=== PATIENT | male | born 1945 | race Two or more races ===

== ENCOUNTER → 2017-04-21 | Outpatient (CLI) | payer MEDICARE, OTHER ==
[2017-04-21 10:45] LABS: BASOPHILS % 0.5 % (0.0-2.0); EOSINOPHILS # 0.3 10^3/ul (0.0-0.5); EOSINOPHILS % 3.8 % (0.0-7.0); HEMATOCRIT 35.5 % (42.0-52.0); HEMOGLOBIN 10.9 g/dl (14.0-18.0); LYMPHOCYTES # 1.3 10^3/ul (0.8-2.9); LYMPHOCYTES % 19.7 % (15.0-51.0); MEAN CORPUSCULAR HEMOGLOBIN 20.1 pg (29.0-33.0); MEAN CORPUSCULAR HGB CONC 30.7 g/dl (32.0-37.0); MEAN CORPUSCULAR VOLUME 65.6 fl (82.0-101.0); MEAN PLATELET VOLUME 9.7 fl (7.4-10.4); MONOCYTE # 0.5 10^3/ul (0.3-0.9); MONOCYTES % 7.1 % (0.0-11.0); NEUTROPHILS % 68.6 % (39.0-77.0); PLATELET COUNT 208 10^3/UL (140-415); RED BLOOD COUNT 5.41 10^6/ul (4.70-6.10); RED CELL DISTRIBUTION WIDTH 16.9 % (11.5-14.5); WHITE BLOOD COUNT 6.7 10^3/ul (4.8-10.8)
[2017-04-21 11:18] LABS: ALBUMIN 4.3 g/dl (3.3-4.9); ALBUMIN/GLOBULIN RATIO 1.19; BILIRUBIN,INDIRECT 0.4 mg/dl (0-1.1); BILIRUBIN,TOTAL 0.4 mg/dl (0.2-1.3); CALCIUM 9.7 mg/dl (8.4-10.2); CREATININE 0.88 mg/dl (0.61-1.24); POTASSIUM 4.8 mmol/L (3.5-5.1); TOTAL PROTEIN 7.9 g/dl (6.1-8.1)
== END | disposition home or self-care (01) ==
LOC: LAB 10:03
PROVIDERS: ATTEND Internal Medicine Gastroenterology
DX: R63.4 Abnormal weight loss (principal)
CPT/HCPCS: 80053; 85025

== ENCOUNTER 2017-06-10 15:41 | Day surgery (SDC) | payer MEDICARE, OTHER ==
[~2017-06-10] VITALS: Ht 167.6 cm; Wt 64.0 kg
[2017-06-10 16:04] VITALS: Ht 167.6 cm; Wt 64.0 kg
[2017-06-10] MEDS ORDERED: MIDAZOLAM 1 MG/ML 2 ML INJ ONE (16:19)
[2017-06-10] MEDS ORDERED: FENTAnyl 50 MCG/ML VIAL ONE (16:19)
[2017-06-10] MEDS ORDERED: PROPOFOL 20 ML ONE (16:19)
[2017-06-10 16:38] VITALS: BP 159/73; PULSE 65; RESP 18
--- NOTE | 2017-06-10 17:50 | OPPN ---
Date/Time of Note Date/Time of Note DATE: 06/10/17 TIME: 17:48 Operative Report Preoperative Diagnosis Change in bowel habit Weight loss Postoperative Diagnosis Gastritis with erosions Multiple sigmoid polyps Internal hemorrhoids Operation/Procedure Performed Esophagogastroduodenoscopy and biopsy Colonoscopy biopsy and polypectomy Surgeon see signature line clinical assistant None Anesthesia: MAC Estimated blood loss: none Transfusion Required none Specimen Gastric mucosal biopsy Colon polyps Grafts/Implants none Complications none ISAC NG MD Jun 10, 2017 17:50
--- NOTE | 2017-06-10 17:50 | OPPN ---
Date/Time of Note Date/Time of Note DATE: 06/10/17 TIME: 17:48 Operative Report Preoperative Diagnosis Change in bowel habit Weight loss Postoperative Diagnosis Gastritis with erosions Multiple sigmoid polyps Internal hemorrhoids Operation/Procedure Performed Esophagogastroduodenoscopy and biopsy Colonoscopy biopsy and polypectomy Surgeon see signature line animal care assistant None Anesthesia: MAC Estimated blood loss: none Transfusion Required none Specimen Gastric mucosal biopsy Colon polyps Grafts/Implants none Complications none ISAC NG MD Jun 10, 2017 17:50
--- NOTE | 2017-06-10 17:50 | OPPN ---
Date/Time of Note Date/Time of Note DATE: 06/10/17 TIME: 17:48 Operative Report Preoperative Diagnosis Change in bowel habit Weight loss Postoperative Diagnosis Gastritis with erosions Multiple sigmoid polyps Internal hemorrhoids Operation/Procedure Performed Esophagogastroduodenoscopy and biopsy Colonoscopy biopsy and polypectomy Surgeon see signature line public relations assistant None Anesthesia: MAC Estimated blood loss: none Transfusion Required none Specimen Gastric mucosal biopsy Colon polyps Grafts/Implants none Complications none ISAC NG MD Jun 10, 2017 17:50
--- NOTE | 2017-06-11 06:13 | GILP ---
DATE OF PROCEDURE: NAME OF PROCEDURES: 1. Esophagogastroduodenoscopy and biopsy. 2. Colonoscopy, biopsy and polypectomy. SURGEON: Isac Beltran MD. PREOPERATIVE DIAGNOSES: 1. Change in bowel habit. 2. Weight loss. POSTOPERATIVE DIAGNOSES 1. Gastritis with erosions. 2. Gastric mucosal biopsies were taken for Helicobacter pylori test. 3. Colonoscopy all the way to the cecum. 4. Multiple sigmoid colon polyps were removed using the biopsy forceps as well as snare and electro cautery. 5. Internal hemorrhoids. INDICATION FOR THE PROCEDURES: Mr. Kev Norris is a 71-year-old male patient who had change in bowel habits and weight loss. The patient was scheduled for endoscopy and colonoscopy for furthe evaluation. The procedures and possible complications were well explained to the patient. The patient understoo d and consented to the procedure. DESCRIPTION OF PROCEDURE: Under the influence of anesthesia, the gastroscope was carefully introduc ed into the esophagus and under direct vision, it was advanced to the stomach and through the pyloru s into the duodenal bulb and descending duodenum. FINDINGS: ESOPHAGUS: The mucosa was normal. STOMACH: The patient had gastritis with erosions. Gastric mucosal biopsies were taken for H. pylor i test. DUODENUM: Normal. The colonoscope was carefully introduced in the rectum and under direct vision, it was advanced all the way to the cecum. FINDINGS: The patient had multiple sigmoid colon polyps and 3 of them were removed using the biopsy forceps and 1 with the snare and electrocautery. The patient was noted to have internal hemorrhoid s. He tolerated the procedures very well and there was no complication from the procedures. At the end of the procedures, he was awake with stable vital signs and he was discharged home to the care of h is family. IMPRESSION: Please see postoperative diagnoses. PLAN: 1. Omeprazole 40 mg p.o. q.a.m. 2. Await histopathology reports. 3. Next screening colonoscopy in 5 years. Dictated By: ISAC THOMPSON/JESUS Conf#: [id number] DID#: [id number]
== END 2017-06-11 06:38 | disposition home or self-care (01) ==
LOC: GIL 15:41
PROVIDERS: ATTEND Internal Medicine Gastroenterology
DX: R19.4 Change in bowel habit (principal); D12.5 Benign neoplasm of sigmoid colon; K29.60 Other gastritis without bleeding; K64.8 Other hemorrhoids; E11.9 Type 2 diabetes mellitus without complications
CPT/HCPCS: 43239; 45380; J2250; J3010